=== PATIENT | female | born 1950 | race Hispanic/Latino ===

== ENCOUNTER 2018-04-12 23:58 | Emergency (ER) | payer OTHER ==
[2018-04-13] MEDS ORDERED: ONDANSETRON ODT 4 MG TAB ONE (00:24)
[2018-04-13] MEDS ORDERED: HYDROMORPHONE 1 MG/1 ML AMP ONE (00:24)
[2018-04-13] MEDS ORDERED: KETOROLAC TROMETHAMINE 60 MG/2 ML VIAL ONE (01:26)
[2018-04-13] MEDS ORDERED: PROMETHAZINE HCL 25 MG/ML 1ML AMPULE IM ONE (01:26)
== END 2018-04-13 02:20 | disposition home or self-care (01) ==
LOC: EDH 23:58
DX: H59.89 Other postprocedural complications and disorders of eye and adnexa, not elsewhere classified (principal); E11.9 Type 2 diabetes mellitus without complications; I10 Essential (primary) hypertension; Z90.49 Acquired absence of other specified parts of digestive tract
CPT/HCPCS: 96372 ×3; 99283; J1170; J1885; J2550